=== PATIENT | female | born 1945 | race African-American/Black ===

== ENCOUNTER 2018-09-04 20:58 | Emergency (ER) | payer SELFPAY ==
[2018-09-04 21:04] VITALS: BP 163/75; PULSE 108; TEMP 97.4; BMI 30.2
--- NOTE | 2018-09-04 21:05 | PDOC ---
Rapid Medical Evaluation Time Seen by Provider: 09/04/18 21:03 Medical Evaluation: 09/04/18 21:03 Pt c/o: swallowed a pin 5 days ago while holding it in her mouth ( pt is a dressmaker) Pt on brief exam: no visable foreign body, speaking clear sentencesPt Pt ordered for: soft tissue neck xray Pt to proceed to the ED Discharge Disposition - Diagnosis Foreign body - Referrals - Patient Instructions - Post Discharge Activity
--- NOTE | 2018-09-04 23:31 | PDOC ---
History of Present Illness - General Chief Complaint: Foreign Body (FB) Stated Complaint: SWALLOWED AN OBJECT Time Seen by Provider: 09/04/18 21:03 History Source: Patient Exam Limitations: No Limitations - History of Present Illness Initial Comments: 09/04/18 23:59 73 yo female pmh of HTN presents to the ED after swallowing a sewing pin 5 days ago. 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 Pt was waiting for appointment with PCP which is why she did not come sooner. Pt denies N/V/F/C, blood in sputum, CP, SOB or abdominal pain but does admit to some discomfort with swallowing but is able to eat and drink. Past History - Past Medical History Allergies/Adverse Reactions: Allergies Allergy/AdvReac Type Severity Reaction Status Date / Time No Known Allergies Allergy Verified 09/04/18 21:04 Home Medications: Ambulatory Orders Mag Hydrox/Al Hydrox/Simeth [Mylanta Suspension -] 30 ml PO TID #1 bottle COPD: No HTN: Yes - Surgical History Abdominal Surgery: Yes - Suicide/Smoking/Psychosocial Hx Smoking History: Never smoked Review of Systems - Review of Systems Constitutional: No: Chills, Fever HEENTM: Yes: Throat Pain (with swallowing). No: Throat Swelling Respiratory: No: Shortness of Breath Cardiac (ROS): No: Chest Pain ABD/GI: No: Constipated, Diarrhea, Nausea, Vomiting : No: Burning, Dysuria Musculoskeletal: No: Back Pain *Physical Exam - Vital Signs Last Vital Signs Temp Pulse Resp BP Pulse Ox 97.4 F L 108 H 18 163/75 99 09/04/18 21:00 09/04/18 21:00 09/04/18 21:00 09/04/18 21:00 09/04/18 21:00 - Physical Exam General Appearance: Yes: Nourished, Appropriately Dressed. No: Apparent Distress HEENT: positive: EOMI, Other (no pin or blood noted on oral exam. No swelling to neck or pain on palpation) Neck: positive: Trachea midline, Normal Thyroid, Supple. negative: Stridor, Lymphadenopathy (R), Lymphadenopathy (L) Respiratory/Chest: positive: Lungs Clear, Normal Breath Sounds. negative: Respiratory Distress, Stridor, Wheezing Cardiovascular: positive: Regular Rhythm, S1, S2, Tachycardia. negative: Edema , JVD, Murmur Vascular Pulses: Dorsalis-Pedis (R): 3+, Doralis-Pedis (L): 3+ Gastrointestinal/Abdominal: positive: Normal Bowel Sounds, Flat, Soft. negative : Pulsatile Mass, Guarding, Rebound, Tenderness Neurologic: positive: Fully Oriented, Alert, Normal Mood/Affect, Normal Response Medical Decision Making - Medical Decision Making 09/05/18 01:23 73 presents to ED after ingestion of pin 5 days ago. Received Magic mouth wash Abdomen KUB, Chest and neck negative for metallic pin WIll send home with ENT follow up and told to gargle maalox *DC/Admit/Observation/Transfer Diagnosis at time of Disposition: Foreign body - Discharge Dispostion Disposition: HOME Condition at time of disposition: Stable Decision to Admit order: No - Referrals Referrals: Chaitanya Srivastava MD [Staff Physician] - Romoe Brewer [Other] - Patient Instructions Printed Discharge Instructions: DI for Foreign Body, Swallowed-Adult Additional Instructions: Please follow up with your Primary Care Doctor and the insurance claims specialist Dr. Srivastava we referred you to. Make appointments within the next 48 hours. Please return to the Emergency Room for new or worsening concerns including but not limited to: difficulty swallowing, coughing up blood or vomiting blood, abdominal pain, bowel movements with blood or light headedness. Gargle with Maalox Over the counter oral suspension as needed and until symptoms subside Thank you - Post Discharge Activity
[2018-09-05] MEDS ORDERED: MAG HYDROX/ALH/SMC/DPHA/LIDO 240 ML MOUTHWASH MM ONE (00:15)
--- NOTE | 2018-09-05 01:08 | PDOC ---
Attending Attestation - Resident Resident Name: Otilio Constantino - ED Attending Attestation I have performed the following: I have examined & evaluated the patient, The case was reviewed & discussed with the resident, I agree w/resident's findings & plan, Exceptions are as noted - HPI HPI: 09/05/18 01:06 73-year-old female presents to the ER 5 days after ingestion a metallic cloth plan area patient complains of globus sensation with mild dysphasia. - Physicial Exam PE: 09/05/18 01:06 Patient is awake and alert, well-appearing, in no distress Normocephalic and atraumatic PERRLA, EOMI Oropharynx is clear without foreign bodies, there is no stridor or dysphonia CTA - Medical Decision Making 09/05/18 01:07 73-year-old female presents 5 days after contacting ingestion of a metallic cloth pin. No airway issues are present. Soft tissue neck reveals no evidence of foreign body. We'll obtain chest and abdomen to evaluate for distal transit. Likely discharge. 09/05/18 01:24 Chest x-ray and a KUB revealed no evidence of radiopaque foreign body. Will discharge with symptomatic relief with ENT follow-up.
== END 2018-09-05 02:02 | disposition home or self-care (01) ==
LOC: JER 20:58
DX: T18.9XXA Foreign body of alimentary tract, part unspecified, initial encounter (principal); X58.XXXA Exposure to other specified factors, initial encounter; Y93.D2 Activity, sewing; Y92.89 Other specified places as the place of occurrence of the external cause; Y99.8 Other external cause status
CPT/HCPCS: 70360-TC-FY; 71045-TC-FY; 74018-TC-FY; 99281-25